=== PATIENT | female | born 1960 | race Caucasian/White ===

== ENCOUNTER 2019-12-13 22:24 | Emergency (ER) | payer OTHER, BC ==
[~2019-12-13] VITALS: Ht 162.5 cm; Wt 63.5 kg
[2019-12-14] MEDS ORDERED: ROBAXIN-750750 MG PO ×2 (01:23)
[2020-02-23] MEDS ORDERED: CYCLOBENZAPRINE10 MG PO (09:41)
[2020-02-23] MEDS ORDERED: XANAX0.5 MG PO (09:42)
[2020-02-23] MEDS ORDERED: LEADER ASPIRIN325 MG PO (09:42)
[2020-02-23] MEDS ORDERED: OMEPRAZOLE40 MG PO (09:43)
[2020-02-23] MEDS ORDERED: LEVOTHYROXINE25 MCG PO (09:43)
[2020-02-23] MEDS ORDERED: CELEXA20 MG PO (09:43)
== END 2019-12-14 01:40 | disposition home or self-care (01) ==
LOC: ED 22:24
DX: S16.1XXA Strain of muscle, fascia and tendon at neck level, initial encounter (principal); S20.219A Contusion of unspecified front wall of thorax, initial encounter; S80.02XA Contusion of left knee, initial encounter; V89.2XXA Person injured in unspecified motor-vehicle accident, traffic, initial encounter; Y93.89 Activity, other specified; Y92.89 Other specified places as the place of occurrence of the external cause; Y99.8 Other external cause status

== ENCOUNTER 2020-01-27 12:37 | Emergency (ER) | payer BC ==
[~2020-01-27] VITALS: Ht 162.5 cm; Wt 65.8 kg
[~2020-01-27 12:37] MED LIST: ROBAXIN-750750 MG PO
[2020-01-27 12:48] VITALS: BP 144/75
[2020-01-27 13:14] LABS: BASO # 0.1 10*3/uL (0.0-0.1); BASO % 0.8 % (0.0-1.0); EOS # 0.2 10*3/uL (0.0-0.4); EOS % 1.8 % (1.0-4.0); HEMATOCRIT 47.3 % (37.0-47.0); LYMPH % 21.3 % (27.0-41.0); MEAN CELL VOLUME 95.9 fl (81.0-99.0); MEAN CORPUSCULAR HGB 31.2 pg (27.0-31.0); MEAN CORPUSCULAR HGB CONC 32.6 g/dl (33.0-37.0); MEAN PLATELET VOLUME 9.9 fl (9.6-12.3); MONO # 0.6 10*3/uL (0.1-1.0); MONO % 6.9 % (3.0-9.0); NEUT # 6.4 10*3/uL (2.3-7.9); NEUT % 68.7 % (47.0-73.0); PLATELET COUNT AUTOMATED 340 10*3/uL (130-400); RED BLOOD COUNT 4.93 10*6/uL (4.10-5.10); RED CELL DISTRI WIDTH 14.5 % (0-14.5); WHITE BLOOD COUNT 9.3 10*3/uL (4.8-10.8)
[2020-01-27 13:25] LABS: ACT PARTIAL THROMBO TIME 26.2 SECONDS (20.0-32.1)
[2020-01-27 13:40] LABS: ALBUMIN 3.7 gm/dl (3.1-4.5); ALKALINE PHOSPHATASE 103 U/L (45-117); BUN 11 mg/dl (7-24); CHLORIDE 106 mmol/L (98-107); LIPASE 68 U/L (73-393); POTASSIUM 4.6 mmol/L (3.5-5.1); SGOT/AST 17 IU/L (3-35); SGPT/ALT 21 U/L (12-78); SODIUM 137 mmol/L (136-145); TOTAL PROTEIN 7.4 gm/dL (6.4-8.2)
--- NOTE | 2020-01-27 15:38 | NUR ---
NURSE REPORT TO GARCÍA BALL, FOR CONTINUATION OF CARE.
--- NOTE | 2020-01-29 10:36 | NUR ---
telephone call to this patient to check on her and to remind her about setting up a appt with dr hernandez, i did ask the [facility] dept to call her to assist with this on thursday. she reports she is feeling better, she did pass 3 more clots on thursday when she went home, but nothing since, i encouraged her to return to the er if she feels worse, and she agreed to do so.
[2020-02-23] MEDS ORDERED: CYCLOBENZAPRINE10 MG PO (09:41)
[2020-02-23] MEDS ORDERED: LEADER ASPIRIN325 MG PO (09:42)
[2020-02-23] MEDS ORDERED: XANAX0.5 MG PO (09:42)
[2020-02-23] MEDS ORDERED: OMEPRAZOLE40 MG PO (09:43)
[2020-02-23] MEDS ORDERED: CELEXA20 MG PO (09:43)
[2020-02-23] MEDS ORDERED: LEVOTHYROXINE25 MCG PO (09:43)
== END 2020-01-27 16:43 | disposition home or self-care (01) ==
LOC: ED 12:37 → EDHOLD 15:36 → ED 15:36
PROVIDERS: Emergency Medicine
DX: K92.2 Gastrointestinal hemorrhage, unspecified (principal); Z79.899 Other long term (current) drug therapy

== ENCOUNTER → 2020-02-22 | Outpatient (CLI) | payer BC ==
[~2020-02-22] MED LIST changes: +CELEXA20 MG PO; +CYCLOBENZAPRINE10 MG PO; +LEADER ASPIRIN325 MG PO; +LEVOTHYROXINE25 MCG PO; +OMEPRAZOLE40 MG PO; +XANAX0.5 MG PO
== END | disposition home or self-care (01) ==
LOC: COVID19 10:12
PROVIDERS: ATTEND Surgery
DX: Z01.818 Encounter for other preprocedural examination (principal); Z20.822 Contact with and (suspected) exposure to COVID-19

== ENCOUNTER → 2020-02-27 | Day surgery (SDC) | payer BC ==
[~2020-02-27] VITALS: Ht 165.1 cm; Wt 65.8 kg
[2020-02-27 08:19] VITALS: BP 153/62
[2020-02-27 09:07] VITALS: BP 123/63
[2020-02-27 09:20] VITALS: BP 132/72
[2020-02-27 09:36] VITALS: BP 137/74
== END ==
LOC: SDC 02-23 08:00
PROVIDERS: ATTEND Surgery
DX: K62.5 Hemorrhage of anus and rectum (principal); K64.9 Unspecified hemorrhoids; K21.9 Gastro-esophageal reflux disease without esophagitis; F41.9 Anxiety disorder, unspecified; F32.9 Major depressive disorder, single episode, unspecified; J44.9 Chronic obstructive pulmonary disease, unspecified

== ENCOUNTER → 2020-04-19 | Outpatient (CLI) | payer BC ==
[2020-04-19 11:33] LABS: BASO # 0.1 10*3/uL (0.0-0.1); BASO % 1.3 % (0.0-1.0); EOS # 0.2 10*3/uL (0.0-0.4); EOS % 2.8 % (1.0-4.0); HEMATOCRIT 45.9 % (37.0-47.0); LYMPH % 25.5 % (27.0-41.0); MEAN CORPUSCULAR HGB 32.3 pg (27.0-31.0); MEAN CORPUSCULAR HGB CONC 33.3 g/dl (33.0-37.0); MEAN PLATELET VOLUME 10.6 fl (9.6-12.3); MONO # 0.6 10*3/uL (0.1-1.0); PLATELET COUNT AUTOMATED 336 10*3/uL (130-400); RED BLOOD COUNT 4.73 10*6/uL (4.10-5.10); RED CELL DISTRI WIDTH 13.9 % (0-14.5); RETICULOCYTE % 1.47 % (0.50-2.50); WHITE BLOOD COUNT 7.9 10*3/uL (4.8-10.8)
[2020-04-19 11:40] LABS: BILIRUBIN Negative (Negative); BLOOD Negative (Negative); CLARITY Clear (Clear); COLOR Yellow (Yellow); GLUCOSE Negative (Negative); KETONE Negative (Negative); LEUKO ESTERASE Negative (Negative); NITRITE Negative (Negative); PH 6.5 (4.5-8.0)
[2020-04-19 12:07] LABS: ALBUMIN 3.5 gm/dl (3.1-4.5); BUN 12 mg/dl (7-24); CHLORIDE 108 mmol/L (98-107); CREATININE 0.76 mg/dL (0.55-1.02); GAMMA GLUTAMYL TRANSPEPTIDASE 21 U/L (5-55); IRON 77 ug/dL (50-170); POTASSIUM 4.7 mmol/L (3.5-5.1); SGOT/AST 10 IU/L (3-35); SGPT/ALT 16 U/L (12-78); SODIUM 141 mmol/L (136-145); T3 UPTAKE 31 % (31-39); TOTAL IRON BINDING CAPACITY 318 ug/dl (250-450); TRIGLYCERIDES 138 mg/dl (<150); URIC ACID 6.1 mg/dL (2.6-6.0); VLDL CHOLESTEROL 28 mg/dL (6-40)
[2020-04-19 12:13] LABS: BACTERIA 1+; MUCOUS TRACE
[2020-04-19 12:14] LABS: ALKALINE PHOSPHATASE 93 U/L (45-117); CHOLESTEROL 267 mg/dL (<200); HDL CHOLESTEROL 69 mg/dl (40-60); LDL CHOLESTEROL 170 mg/dL (9-159)
[2020-04-19 13:25] LABS: FERRITIN 51.6 ng/mL (10.0-291.0); VITAMIN D, 25-HYDROXY 9.1 ng/mL (30-100)
[2020-04-20 13:06] LABS: ANTI-DSDNA ANTIBODIES <1 IU/mL (0-9)
== END ==
LOC: LAB 11:01
PROVIDERS: ATTEND Family Medicine
DX: E78.5 Hyperlipidemia, unspecified (principal); R79.89 Other specified abnormal findings of blood chemistry; R53.83 Other fatigue; E55.9 Vitamin D deficiency, unspecified; R74.8 Abnormal levels of other serum enzymes

== ENCOUNTER → 2021-02-06 | Outpatient (CLI) | payer BC | END | disposition home or self-care (01) | LOC: COVID19 15:10 | PROVIDERS: ATTEND Internal Medicine | DX: Z20.822 Contact with and (suspected) exposure to COVID-19 (principal) ==

== ENCOUNTER → 2022-06-24 | Outpatient (CLI) | payer BC ==
[2022-06-24 15:20] LABS: BASO # 0.1 10*3/uL (0.0-0.1); BASO % 1.3 % (0.0-1.0); EOS # 0.3 10*3/uL (0.0-0.4); EOS % 3.8 % (1.0-4.0); HEMATOCRIT 45.2 % (37.0-47.0); LYMPH # 2.6 10*3/uL (1.3-4.4); MEAN CELL VOLUME 98.7 fl (81.0-99.0); MEAN CORPUSCULAR HGB 33.2 pg (27.0-31.0); MEAN CORPUSCULAR HGB CONC 33.6 g/dl (33.0-37.0); MEAN PLATELET VOLUME 10.2 fl (9.6-12.3); MONO # 0.6 10*3/uL (0.1-1.0); MONO % 8.1 % (3.0-9.0); NEUT % 52.4 % (47.0-73.0); PLATELET COUNT AUTOMATED 260 10*3/uL (130-400); RED BLOOD COUNT 4.58 10*6/uL (4.10-5.10); RED CELL DISTRI WIDTH 13.3 % (0-14.5); RETICULOCYTE % 2.01 % (0.50-2.50); WHITE BLOOD COUNT 7.7 10*3/uL (4.8-10.8)
[2022-06-24 15:21] LABS: BILIRUBIN Negative (Negative); BLOOD Negative (Negative); CLARITY Clear (Clear); COLOR Yellow (Yellow); GLUCOSE Negative (Negative); KETONE Negative (Negative); LEUKO ESTERASE Trace (Negative); NITRITE Negative (Negative); SPECIFIC GRAVITY <= 1.005 (1.001-1.030); UROBILINOGEN 0.2 E.U./dl (0.0-1.0)
[2022-06-24 16:02] LABS: ALKALINE PHOSPHATASE 77 U/L (46-116); BUN 10 mg/dl (9-23); CHLORIDE 101 mmol/L (98-107); CHOLESTEROL 211 mg/dL (<200); GAMMA GLUTAMYL TRANSPEPTIDASE 26 U/L (0-73); LDL CHOLESTEROL 125 mg/dL (9-159); POTASSIUM 4.2 mmol/L (3.4-5.1); SGPT/ALT 16 U/L (10-49); T3 UPTAKE 20.3 % (22.4-36.7); THYROID STIM HORMONE (HS) 4.999 uIU/ml (0.550-4.780); THYROXINE (T4) TOTAL 7.3 ug/dl (4.5-10.9); TOTAL PROTEIN 6.9 gm/dL (6.0-8.0); TRIGLYCERIDES 90 mg/dl (<150); VITAMIN D, 25-HYDROXY 51.7 ng/mL (30-100)
[2022-06-24 16:14] LABS: BACTERIA 1+; RBC 0-2 rbc/hpf (0-2)
== END | disposition home or self-care (01) ==
LOC: LAB 14:51
PROVIDERS: ATTEND Family Medicine
DX: E55.9 Vitamin D deficiency, unspecified (principal); E78.5 Hyperlipidemia, unspecified; R53.83 Other fatigue; R79.89 Other specified abnormal findings of blood chemistry

== ENCOUNTER → 2023-01-20 | Outpatient (CLI) | payer BC ==
[~2023-01-20] MED LIST changes: +ASPIRIN ADULT L81 M1 PO; +CLARITIN10 MG PO; +COZAAR25 M1 PO; +FISH OIL 1,0001 EAC1 PO; +FLONASE ALLERG9.9 ML NAS; +PREVACID30 M3 PO; +VIT D3 PO
== END | disposition home or self-care (01) ==
LOC: CARD 00:24
PROVIDERS: ATTEND Internal Medicine Cardiovascular Disease
DX: I25.9 Chronic ischemic heart disease, unspecified (principal); R94.31 Abnormal electrocardiogram [ECG] [EKG]; I20.9 Angina pectoris, unspecified

== ENCOUNTER → 2023-05-08 | Outpatient (CLI) | payer BC ==
[~2023-05-08] MED LIST changes: +GADOTERATE MEGLUMINE 7.5 MMOL/15 ML VIAL IV ONE
== END | disposition home or self-care (01) ==
LOC: MRI 01:39
PROVIDERS: ATTEND Family Medicine
DX: G43.909 Migraine, unspecified, not intractable, without status migrainosus (principal); I10 Essential (primary) hypertension